=== PATIENT | male | born 1960 | race Caucasian/White ===

== ENCOUNTER 2019-09-04 11:11 | Emergency (ER) | payer SELFPAY ==
[~2019-09-04] VITALS: Ht 182.9 cm; Wt 104.3 kg
[~2019-09-04 11:11] MED LIST: CLIN150C14 PO; CLOT15CR4 TP
[2019-09-04 11:45] VITALS: BP 134/74
--- NOTE | 2019-09-04 11:54 | PHYS DOC ---
Past Medical History Past Medical History: No Pertinent History Past Surgical History: No Surgical History Alcohol Use: None Drug Use: None Adult General Chief Complaint Chief Complaint: LOWER BACK PAIN OR INJURY HPI HPI Patient is a 59 year old male who presents to the emergency department with complaints of bilateral low back pain and tightness for the last week. Patient states that the pain began after he had bent over to feed his dog's. He denies any fall or injury. Patient denies any numbness, tingling, or weakness of his extremities. Patient denies any saddle anesthesia, or loss of bowel/bladder control. Currently, he rates his pain a 6 out of 10 on the pain scale, he denies any alleviating factors. He describes the pain as tightness. All other ROS is neg unless otherwise noted in HPI. Review of Systems Review of Systems See Above Allergies Allergies Allergies Coded Allergies Type Severity Reaction Last Updated Verified No Known Drug Allergies 03/29/16 No Physical Exam Physical Exam See Above Constitutional: Well developed, well nourished, no acute distress, non-toxic appearance. [] HENT: Normocephalic, atraumatic, bilateral external ears normal, nose normal. [] Eyes: PERRLA, EOMI, conjunctiva normal, no discharge. [] Neck: Normal range of motion, no stridor. [] Cardiovascular:Heart rate regular rhythm Lungs & Thorax: Respirations even and unlabored, no retractions, no respiratory distress Skin: Warm, dry, no erythema, no rash. [] Back: No bony tenderness, no CVA tenderness; bilateral lumbar paraspinal TTP Extremities: No cyanosis, ROM intact, no edema. [] Neurologic: Alert and oriented X 3, no focal deficits noted. [] Psychologic: Affect normal, judgement normal, mood normal. [] Current Patient Data Vital Signs Vital Signs Date Time Temp Pulse Resp B/P (MAP) Pulse Ox O2 Delivery O2 Flow Rate FiO2 09/04/19 11:45 97.6 89 18 134/74 (94) 99 Room Air 97.6 EKG EKG [] Radiology/Procedures Radiology/Procedures [] Course & Med Decision Making Course & Med Decision Making Pertinent Labs and Imaging studies reviewed. (See chart for details) dx: medical screening exam A medical screening exam was performed, patient was found to have no emergent medical condition. The plan of care would've included prescriptions for naproxen and orphenadrine. However, the patient eloped after talking with registration. [] [] Dragon Disclaimer Dragon Disclaimer This electronic medical record was generated, in whole or in part, using a voice recognition dictation system. 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
== END 2019-09-04 12:04 | disposition home or self-care (01) ==
LOC: ER 11:11
DX: M54.5 Low back pain (principal)
CPT/HCPCS: 99283-25